=== PATIENT | male | born 1985 | race Hispanic/Latino ===

== ENCOUNTER 2018-05-05 13:40 | Emergency (ER) | payer BC ==
[~2018-05-05] VITALS: Ht 175.3 cm; Wt 100.0 kg
[~2018-05-05 13:40] MED LIST: AMOXICILLIN500 MG OR; NO; ROBITUSSIN AC10 ML OR; TAM75CAP OR
[2018-05-05] MEDS ORDERED: ZYRTEC10 MG PO (13:51)
[2018-05-05 14:56] LABS: URINE BILIRUBIN - DIPSTICK NEGATIVE (NEGATIVE); URINE BLOOD DIPSTICK TRACE-INTACT (NEGATIVE); URINE COLOR YELLOW; URINE GLUCOSE - DIPSTICK NEGATIVE (NEGATIVE); URINE KETONE NEGATIVE (NEGATIVE); URINE LEUK ESTERASE NEGATIVE (NEGATIVE); URINE NITRITE - DIPSTICK NEGATIVE (Negative); URINE PROTEIN - DIPSTICK NEGATIVE (NEG-TRACE); URINE SPECIFIC GRAVITY >=1.030; URINE UROBILINOGEN - DIPSTICK 0.2 E.U./dL (0.2)
[2018-05-05 15:02] LABS: BARBITURATES NEGATIVE (NEGATIVE); COCAINE NEGATIVE (NEGATIVE); METHADONE NEGATIVE (NEGATIVE); OXCYCODONE NEGATIVE (NEGATIVE); TETRAHYDROCANNABIONOL NEGATIVE (NEGATIVE); TRICYLIC ANTIDEPRESSANTS NEGATIVE (NEGATIVE)
[2018-05-05 15:11] LABS: HEMATOCRIT 48.3 % (39.0-50.0); HEMOGLOBIN 16.4 g/dl (14.0-18.0); IMMATURE GRANULOCYTES 0.8 % (0.0-5.0); MEAN CELL VOLUME 85.3 fL CALC (80.0-100.0); NEUT# 6.65 thou/uL (1.82-7.42); RED BLOOD COUNT 5.66 mill/uL (4.70-6.10); RED CELL DISTRI WIDTH 12.3 % (11.5-15.5)
[2018-05-05 15:21] LABS: ALBUMIN 4.8 g/dL (3.2-5.0); ALKALINE PHOSPHATASE 73 u/l (38-126); ANION GAP 17 (6-22 (CALC)); BILIRUBIN, TOTAL 0.4 mg/dL (0.0-1.4); BUN 14 mg/dL (9-20); BUN/CREATININE RATIO 18 (12-20 (CALC)); CARBON DIOXIDE 25 mmol/l (22-30); CHLORIDE 102 mmol/l (95-108); CREATININE 0.8 mg/dL (0.7-1.3); GFR > 60 ML/MIN (>=60 (CALC)); GFR FOR AFR.AMER. > 60 ML/MIN (>=60 (CALC)); POTASSIUM 4.3 mmol/l (3.5-5.1); SGOT/AST 18 u/l (17-59); SODIUM 140 mmol/l (137-146); TOTAL PROTEIN 7.5 g/dL (6.3-8.2)
[2018-05-05 15:32] LABS: MYOGLOBIN 38 ng/mL (0 - 121)
[2018-05-05 16:03] VITALS: BP 115/74
== END 2018-05-05 16:07 | disposition home or self-care (01) | DRG 880 ==
LOC: ED 13:40
PROVIDERS: Emergency Medicine
DX: F41.9 Anxiety disorder, unspecified (principal); R07.89 Other chest pain

== ENCOUNTER 2018-05-30 03:51 | Emergency (ER) | payer BC ==
[~2018-05-30] VITALS: Ht 175.3 cm; Wt 113.6 kg
[~2018-05-30 03:51] MED LIST changes: +ZYRTEC10 MG PO
[2018-05-30] MEDS ORDERED: CLARITIN10 M1 PO (04:03)
[2018-05-30 04:42] LABS: HEMATOCRIT 47.3 % (39.0-50.0); HEMOGLOBIN 16.1 g/dl (14.0-18.0); IMMATURE GRANULOCYTES 0.9 % (0.0-5.0); MEAN CELL VOLUME 85.2 fL CALC (80.0-100.0); NEUT# 8.18 thou/uL (1.82-7.42); RED BLOOD COUNT 5.55 mill/uL (4.70-6.10); RED CELL DISTRI WIDTH 12.6 % (11.5-15.5)
[2018-05-30 04:44] LABS: URINE BILIRUBIN - DIPSTICK NEGATIVE (NEGATIVE); URINE BLOOD DIPSTICK SMALL (NEGATIVE); URINE COLOR YELLOW; URINE GLUCOSE - DIPSTICK NEGATIVE (NEGATIVE); URINE KETONE TRACE mg/dL (NEGATIVE); URINE LEUK ESTERASE NEGATIVE (NEGATIVE); URINE NITRITE - DIPSTICK NEGATIVE (Negative); URINE PH 5.5 (4.5-8.0); URINE PROTEIN - DIPSTICK NEGATIVE (NEG-TRACE); URINE SPECIFIC GRAVITY >=1.030; URINE UROBILINOGEN - DIPSTICK 0.2 E.U./dL (0.2)
[2018-05-30 04:50] LABS: BARBITURATES NEGATIVE (NEGATIVE); COCAINE NEGATIVE (NEGATIVE); METHADONE NEGATIVE (NEGATIVE); OXCYCODONE NEGATIVE (NEGATIVE); TETRAHYDROCANNABIONOL NEGATIVE (NEGATIVE); TRICYLIC ANTIDEPRESSANTS NEGATIVE (NEGATIVE)
[2018-05-30 04:56] LABS: URINE BACTERIA FEW hpf; URINE MUCUS MODERATE hpf (NONE-FEW); URINE RBC 0-2 RBC/hpf (0-5); URINE SQUAMOUS EPITHELIAL CELL FEW EPI/hpf (0-FEW); URINE WBC 0-2 WBC/hpf (0-5)
[2018-05-30 05:03] LABS: ALBUMIN 4.6 g/dL (3.2-5.0); ALKALINE PHOSPHATASE 77 u/l (38-126); AMYLASE 77 u/l (30-110); ANION GAP 16 (6-22 (CALC)); BILIRUBIN, TOTAL 0.4 mg/dL (0.0-1.4); BUN 16 mg/dL (9-20); BUN/CREATININE RATIO 20 (12-20 (CALC)); CARBON DIOXIDE 24 mmol/l (22-30); CHLORIDE 104 mmol/l (95-108); CREATININE 0.8 mg/dL (0.7-1.3); GFR > 60 ML/MIN (>=60 (CALC)); GFR FOR AFR.AMER. > 60 ML/MIN (>=60 (CALC)); LIPASE 97 u/l (23-300); POTASSIUM 4.1 mmol/l (3.5-5.1); SGOT/AST 16 u/l (17-59); SODIUM 140 mmol/l (137-146); TOTAL PROTEIN 7.3 g/dL (6.3-8.2)
[2018-05-30 05:12] LABS: MYOGLOBIN 19 ng/mL (0 - 121)
[2018-05-30] MEDS ORDERED: ONDANSETRON4 MG PO (07:08)
[2018-05-30] MEDS ORDERED: PROTONIX40 M2 PO (07:08)
[2018-05-30 07:21] VITALS: BP 140/97
== END 2018-05-30 07:30 | disposition home or self-care (01) | DRG 384 ==
LOC: ED 03:51
PROVIDERS: Emergency Medicine
DX: K27.9 Peptic ulcer, site unspecified, unspecified as acute or chronic, without hemorrhage or perforation (principal); B96.81 Helicobacter pylori [H. pylori] as the cause of diseases classified elsewhere; R10.13 Epigastric pain; R10.11 Right upper quadrant pain
CPT/HCPCS: S0164

== ENCOUNTER 2018-08-26 23:34 | Emergency (ER) | payer BC ==
[~2018-08-26] VITALS: Ht 175.3 cm; Wt 115.5 kg
[~2018-08-26 23:34] MED LIST changes: +CLARITIN10 M1 PO; +ONDANSETRON4 MG PO; +PROTONIX40 M2 PO
[2018-08-27 04:15] VITALS: BP 129/89
== END 2018-08-27 04:15 | disposition home or self-care (01) | DRG 880 ==
LOC: ED 23:34
DX: F41.0 Panic disorder [episodic paroxysmal anxiety] (principal)

== ENCOUNTER 2018-09-17 22:00 | Emergency (ER) | payer BC ==
[~2018-09-17] VITALS: Ht 175.3 cm; Wt 90.0 kg
[2018-09-17 23:40] VITALS: BP 140/88
[2018-09-17] MEDS ORDERED: HYDROXYZ HCL25 MG PO (23:46)
[2018-09-17] MEDS ORDERED: BUSPAR5 MG PO (23:46)
== END 2018-09-18 00:05 | disposition home or self-care (01) | DRG 880 ==
LOC: ED 22:00
DX: F41.0 Panic disorder [episodic paroxysmal anxiety] (principal); R06.02 Shortness of breath

== ENCOUNTER 2018-10-12 19:24 | Emergency (ER) | payer BC ==
[~2018-10-12] VITALS: Ht 175.3 cm; Wt 101.0 kg
[~2018-10-12 19:24] MED LIST changes: +BUSPAR5 MG PO; +HYDROXYZ HCL25 MG PO
[2018-10-12 20:16] LABS: URINE BLOOD DIPSTICK TRACE-INTACT (NEGATIVE); URINE COLOR YELLOW; URINE GLUCOSE - DIPSTICK NEGATIVE (NEGATIVE); URINE KETONE 40 mg/dL (NEGATIVE); URINE LEUK ESTERASE NEGATIVE (NEGATIVE); URINE NITRITE - DIPSTICK NEGATIVE (Negative); URINE PROTEIN - DIPSTICK TRACE mg/dL (NEG-TRACE); URINE SPECIFIC GRAVITY 1.025; URINE UROBILINOGEN - DIPSTICK 0.2 E.U./dL (0.2)
[2018-10-12 20:18] LABS: URINE BILIRUBIN - DIPSTICK NEGATIVE (NEGATIVE)
[2018-10-12 20:19] LABS: ALBUMIN 4.5 g/dL (3.2-5.0); ALKALINE PHOSPHATASE 65 u/l (38-126); BUN 11 mg/dL (9-20); BUN/CREATININE RATIO 12 (12-20 (CALC)); CARBON DIOXIDE 23 mmol/l (22-30); CHLORIDE 105 mmol/l (95-108); CPK 129 u/l (52-200); CREATININE 0.9 mg/dL (0.7-1.3); GFR > 60 ML/MIN (>=60 (CALC)); GFR FOR AFR.AMER. > 60 ML/MIN (>=60 (CALC)); MAGNESIUM 1.7 mg/dL (1.6-2.3); SGOT/AST 26 u/l (17-59); SODIUM 139 mmol/l (137-146); TOTAL PROTEIN 7.3 g/dL (6.3-8.2)
[2018-10-12 20:19] LABS: BARBITURATES NEGATIVE (NEGATIVE); COCAINE NEGATIVE (NEGATIVE); METHADONE NEGATIVE (NEGATIVE); OXCYCODONE NEGATIVE (NEGATIVE); TETRAHYDROCANNABIONOL NEGATIVE (NEGATIVE); TRICYLIC ANTIDEPRESSANTS NEGATIVE (NEGATIVE)
[2018-10-12 20:26] LABS: ANION GAP 14 (6-22 (CALC)); BILIRUBIN, TOTAL 0.6 mg/dL (0.0-1.4)
[2018-10-12 20:28] LABS: MYOGLOBIN 35 ng/mL (0 - 121)
[2018-10-12] MEDS ORDERED: BUSPAR10 M1 PO (21:10)
[2018-10-12] MEDS ORDERED: METO25TAB PO (21:10)
[2018-10-12 21:24] VITALS: BP 124/81
== END 2018-10-12 21:24 | disposition home or self-care (01) | DRG 880 ==
LOC: ED 19:24
PROVIDERS: Family Medicine
DX: F41.9 Anxiety disorder, unspecified (principal); I10 Essential (primary) hypertension; E87.6 Hypokalemia

== ENCOUNTER 2019-01-04 21:19 | Emergency (ER) | payer BC ==
[~2019-01-04] VITALS: Ht 175.3 cm; Wt 98.2 kg
[~2019-01-04 21:19] MED LIST changes: +BUSPAR10 M1 PO; +METO25TAB PO
[2019-01-04] MEDS ORDERED: LEVOTHYROXIN50 MCG PO (21:32)
[2019-01-04 22:00] LABS: HEMATOCRIT 43.7 % (39.0-50.0); HEMOGLOBIN 14.5 g/dl (14.0-18.0); IMMATURE GRANULOCYTES 0.8 % (0.0-5.0); MEAN CELL VOLUME 85.2 fL CALC (80.0-100.0); MEAN CORPUSCULAR HGB 28.3 pG CALC (26.0-32.0); MEAN CORPUSCULAR HGB CONC 33.2 g/L CALC (32.0-36.0); NEUT# 6.81 thou/uL (1.82-7.42); RED BLOOD COUNT 5.13 mill/uL (4.70-6.10); RED CELL DISTRI WIDTH 12.9 % (11.5-15.5)
[2019-01-04 22:36] VITALS: BP 130/103
== END 2019-01-04 22:37 | disposition home or self-care (01) | DRG 153 ==
LOC: ED 21:19
PROVIDERS: Family Medicine
DX: J06.9 Acute upper respiratory infection, unspecified (principal)

== ENCOUNTER 2020-01-14 07:47 | Emergency (ER) | payer BC ==
[~2020-01-14] VITALS: Ht 175.3 cm; Wt 110.0 kg
[~2020-01-14 07:47] MED LIST changes: +LEVOTHYROXIN50 MCG PO
[2020-01-14] MEDS ORDERED: CHERATUSSIN PO (09:31)
[2020-01-14] MEDS ORDERED: ZPAK PO (09:31)
[2020-01-14 09:43] VITALS: BP 148/77
== END 2020-01-14 09:52 | disposition home or self-care (01) | DRG 153 ==
LOC: ED 07:47
DX: J06.9 Acute upper respiratory infection, unspecified (principal); F41.9 Anxiety disorder, unspecified; J30.2 Other seasonal allergic rhinitis; Z20.828 Contact with and (suspected) exposure to other viral communicable diseases

== ENCOUNTER 2020-05-28 18:37 | Emergency (ER) | payer BC ==
[~2020-05-28] VITALS: Ht 172.7 cm; Wt 113.0 kg
[~2020-05-28 18:37] MED LIST changes: +CHERATUSSIN PO; +ZPAK PO
[2020-05-28 19:45] VITALS: BP 155/97
[2020-05-28] MEDS ORDERED: MOTRIN800 MG PO (19:59)
== END 2020-05-28 19:45 | disposition home or self-care (01) | DRG 563 ==
LOC: ED 18:37
DX: S93.401A Sprain of unspecified ligament of right ankle, initial encounter (principal); I10 Essential (primary) hypertension; F41.9 Anxiety disorder, unspecified; V89.2XXA Person injured in unspecified motor-vehicle accident, traffic, initial encounter

== ENCOUNTER 2020-10-17 01:58 | Emergency (ER) | payer BC ==
[~2020-10-17] VITALS: Ht 172.7 cm; Wt 113.0 kg
[~2020-10-17 01:58] MED LIST changes: +MOTRIN800 MG PO
[2020-10-17] MEDS ORDERED: PROVENTIL HFA IN (04:06)
[2020-10-17] MEDS ORDERED: CODEINE/GUAIFEN1 SOL PO (04:06)
[2020-10-17 04:30] VITALS: BP 135/91
== END 2020-10-17 04:30 | disposition home or self-care (01) | DRG 203 ==
LOC: ED 01:58
DX: J40 Bronchitis, not specified as acute or chronic (principal); I10 Essential (primary) hypertension; F41.9 Anxiety disorder, unspecified; Z20.822 Contact with and (suspected) exposure to COVID-19

== ENCOUNTER 2020-10-26 03:58 | Emergency (ER) | payer BC ==
[~2020-10-26] VITALS: Ht 172.7 cm; Wt 113.0 kg
[~2020-10-26 03:58] MED LIST changes: +CODEINE/GUAIFEN1 SOL PO; +PROVENTIL HFA IN
[2020-10-26] MEDS ORDERED: BACTRIM DS1 TAB PO (04:33)
[2020-10-26 04:45] VITALS: BP 139/91
== END 2020-10-26 04:45 | disposition home or self-care (01) | DRG 603 ==
LOC: ED 03:58
PROC: 0H96XZZ Drainage of Back Skin, External Approach (ICD-10-PCS; principal; 2020-10-26)
DX: L02.212 Cutaneous abscess of back [any part, except buttock and flank] (principal); I10 Essential (primary) hypertension; F41.9 Anxiety disorder, unspecified

== ENCOUNTER 2021-02-03 16:49 | Emergency (ER) | payer BC ==
[~2021-02-03] VITALS: Ht 172.7 cm; Wt 114.0 kg
[~2021-02-03 16:49] MED LIST changes: +BACTRIM DS1 TAB PO
[2021-02-03 18:03] LABS: HEMATOCRIT 47.6 % (39.0-50.0); HEMOGLOBIN 15.8 g/dl (14.0-18.0); IMMATURE GRANULOCYTES 0.9 % (0.0-5.0); MEAN CELL VOLUME 86.5 fL CALC (80.0-100.0); MEAN CORPUSCULAR HGB 28.7 pG CALC (26.0-32.0); MEAN CORPUSCULAR HGB CONC 33.2 g/dL CAL (32.0-36.0); NEUT# 10.58 thou/uL (1.82-7.42); RED BLOOD COUNT 5.5 mill/uL (4.70-6.10); RED CELL DISTRI WIDTH 12.8 % (11.5-15.5)
[2021-02-03 18:19] LABS: ALBUMIN 4.8 g/dL (3.2-5.0); ALKALINE PHOSPHATASE 85 u/l (38-126); AMYLASE 86 u/l (30-110); ANION GAP 17 (6-22 (CALC)); BILIRUBIN, TOTAL 0.5 mg/dL (0.0-1.4); BUN 14 mg/dL (9-20); BUN/CREATININE RATIO 15 (12-20 (CALC)); CARBON DIOXIDE 24 mmol/l (22-30); CHLORIDE 107 mmol/l (95-108); CREATININE 0.9 mg/dL (0.7-1.3); GFR > 60 ML/MIN (>=60 (CALC)); GFR FOR AFR.AMER. > 60 ML/MIN (>=60 (CALC)); LIPASE 48 u/l (23-300); SGOT/AST 24 u/l (17-59); SODIUM 144 mmol/l (137-146); TOTAL PROTEIN 8.5 g/dL (6.3-8.2)
[2021-02-03 18:31] LABS: MYOGLOBIN 83 ng/mL (0 - 121)
[2021-02-03 20:18] LABS: URINE BILIRUBIN - DIPSTICK NEGATIVE (NEGATIVE); URINE BLOOD DIPSTICK TRACE-INTACT (NEGATIVE); URINE COLOR YELLOW; URINE GLUCOSE - DIPSTICK NEGATIVE (NEGATIVE); URINE KETONE TRACE mg/dL (NEGATIVE); URINE LEUK ESTERASE NEGATIVE (NEGATIVE); URINE PROTEIN - DIPSTICK NEGATIVE (NEG-TRACE); URINE UROBILINOGEN - DIPSTICK 0.2 E.U./dL (0.2)
[2021-02-03 20:21] LABS: URINE NITRITE - DIPSTICK NEGATIVE (Negative)
[2021-02-03] MEDS ORDERED: PROTONIX40 M2 PO (20:31)
[2021-02-03] MEDS ORDERED: ZOFRAN4 MG/TAB PO (20:31)
[2021-02-03 20:53] VITALS: BP 126/73
--- NOTE | 2021-02-05 08:43 | NUR ---
PRELIMINARY BLOOD CULTURE SHOWS GRAM (+) COCCI IN 1/4 VIALS, LIKELY CONTAMINANT. RESULTS REPORTED TO DR BENITEZ. ATTEMPTED TO CHECK ON PT VIA PHONE - LEFT VOICEMAIL. WILL REVIEW AGAIN AFTER RECEIVING FINAL CULTURE RESULTS.
--- NOTE | 2021-02-09 08:25 | NUR ---
FINAL RESULTS DISCUSSED WITH . UNABLE TO REACH PATIENT. WE WILL SEND LETTER WITH RESULTS. / VIALS GROWING STAPH CAPITIS probable contamination.
== END 2021-02-03 21:01 | disposition home or self-care (01) | DRG 392 ==
LOC: ED 16:49
PROVIDERS: Emergency Medicine
DX: R10.13 Epigastric pain (principal); R10.33 Periumbilical pain; I10 Essential (primary) hypertension
CPT/HCPCS: Q9967; S0164

== ENCOUNTER 2021-04-15 13:38 | Emergency (ER) | payer SELFPAY ==
[~2021-04-15] VITALS: Ht 172.7 cm; Wt 113.6 kg
[~2021-04-15 13:38] MED LIST changes: +ZOFRAN4 MG/TAB PO
[2021-04-15 14:20] VITALS: BP 160/71
== END 2021-04-15 16:45 | disposition home or self-care (01) | DRG 179 ==
LOC: ED 13:38
DX: U07.1 COVID-19 (principal); I10 Essential (primary) hypertension; F41.9 Anxiety disorder, unspecified

== ENCOUNTER 2022-02-08 20:32 | Observation (INO) | payer SELFPAY ==
[~2022-02-08] VITALS: Ht 175.3 cm; Wt 113.0 kg
[2022-02-08] VITALS (9 sets, daily range): BP systolic 119–141; BP diastolic 78–96
--- NOTE | 2022-02-08 20:32 | NUR ---
PATIENT ARRIVED IN ED TAKEN TO ROOM 6. BGL 92. ASSESSED BY ED PHYSICIAN.
[2022-02-08 21:29] LABS: HEMATOCRIT 48.2 % (39.0-50.0); HEMOGLOBIN 16.3 g/dl (14.0-18.0); IMMATURE GRANULOCYTES 0.5 % (0.0-5.0); MEAN CELL VOLUME 85.3 fL CALC (80.0-100.0); MEAN CORPUSCULAR HGB 28.8 pG CALC (26.0-32.0); MEAN CORPUSCULAR HGB CONC 33.8 g/dL CAL (32.0-36.0); NEUT# 7.77 thou/uL (1.82-7.42); RED BLOOD COUNT 5.65 mill/uL (4.70-6.10); RED CELL DISTRI WIDTH 12.7 % (11.5-15.5)
[2022-02-08 21:43] LABS: PROTHROMBIN TIME 10.4 SECONDS (9.0-12.5)
[2022-02-08 21:45] LABS: ALBUMIN 4.9 g/dL (3.2-5.0); ALKALINE PHOSPHATASE 71 u/l (38-126); ANION GAP 17 (6-22 (CALC)); BILIRUBIN, TOTAL 1.3 mg/dL (0.0-1.4); BUN 13 mg/dL (9-20); BUN/CREATININE RATIO 15 (12-20 (CALC)); CARBON DIOXIDE 22 mmol/l (22-30); CHLORIDE 105 mmol/l (95-108); CREATININE 0.9 mg/dL (0.7-1.3); GFR FOR AFR.AMER. > 60 ML/MIN (>=60 (CALC)); GFR OTHER RACES > 60 ML/MIN (>=60 (CALC)); POTASSIUM 3.9 mmol/l (3.5-5.1); SGOT/AST 34 u/l (17-59); SODIUM 141 mmol/l (137-146); TOTAL PROTEIN 8.5 g/dL (6.3-8.2)
--- NOTE | 2022-02-08 22:56 | NUR ---
AWAITING URINE RESULTS. PT STABLE ADVISED OF WAIT TIME.
[2022-02-08 23:03] LABS: URINE BLOOD DIPSTICK NEGATIVE (NEGATIVE); URINE COLOR YELLOW; URINE GLUCOSE - DIPSTICK NEGATIVE (NEGATIVE); URINE KETONE 40 mg/dL (NEGATIVE); URINE LEUK ESTERASE NEGATIVE (NEGATIVE); URINE PROTEIN - DIPSTICK TRACE mg/dL (NEG-TRACE); URINE SPECIFIC GRAVITY >=1.030
[2022-02-08 23:11] LABS: URINE BILIRUBIN - DIPSTICK SMALL (NEGATIVE); URINE NITRITE - DIPSTICK NEGATIVE (Negative)
[2022-02-09 00:30] VITALS: BP 123/90
--- NOTE | 2022-02-09 00:30 | NUR ---
BELONGINGS SHEET COMPLETED.
--- NOTE | 2022-02-09 00:39 | NUR ---
REPORT TO ALONSO/MED-SURG.
--- NOTE | 2022-02-09 00:45 | NUR ---
TO FLOOR VIA STRETCHER WITH NURSE/POCKET MONITOR. NAD. NO CHANGE IN CONDITION. VSS. NO C/O.
--- NOTE | 2022-02-09 02:00 | NUR ---
PATIENT ADMITTED FROM ER VIA STRETCHER WITH ER STAFF IN ATTENDANCE. PATIENT IS ABLE TO TRANSFER TO BED. AWAKE ALERT AND ORIENTEDX3. PATIENT STATES THAT THE NUMBNESS THAT HE WAS FEELING PRIOR TO ADMITSSION IS RESOLVED. NEURO CHECK IS WNL. NO WEAKNESS NOTED. MARTHA IS WNL. HAND GRASPS ARE EQUAL. SALINE LOCK TO LAC INTACT. IVF NS HUNG AND INFUSING AT 125CC/HR. TELE MONITOR IN PLACE-SR 70'S. LUNGS ARE CLEAR. ABD IS SOFT WITH ACTIVE BS. NO PERIPHERAL EDEMA NOTED. DENIES ANY DIFFICULTY WITH URINATION AND LASTBM WAS YESTERDAY 02/08/22. ORIENTED TO ROOM AND SURROUNDINGS. INSTRUCTED ON USE OF NURSE CALL LIGHT SYSTEM AND TV REMOTE. CALL LIGHT IN REACH. WILL CONT TO MONITOR.
[2022-02-09 04:10] VITALS: BP 104/67
[2022-02-09 05:30] VITALS: BP 104/73
--- NOTE | 2022-02-09 05:30 | NUR ---
PATIENT RESTING IN BED-EYES ARE CLOSED AND RESP ARE EVEN AND UNLABORED. IVF PATENT AND INFUSING VIA LAC SITE. TELE MONITOR IN PLACE AND READING SR-70'S. CALL LIGHT IN REACH. WILL CONT TO MONITOR.
--- NOTE | 2022-02-09 07:42 | NUR ---
RECEIVE REPORT FROM HEIDY RILEY. PATIENT STABLE AT THIS TIME RESTING IN BED.
[2022-02-09 08:00] VITALS: BP 104/73
--- NOTE | 2022-02-09 08:00 | NUR ---
PATIENT ALERTA AND ORIENTED X3. RESTING IN BED STABLE AT THIS TIME. ASSESSMENT HEAD-TO-TOE COMPLETE. PATIENT IS EDUCATED ABOUD MEDICATIONS AND NURSING PLAN FOR TODAY. PT REFER UNDERSTAND. SAFETY AND FALL PRECAUTIONS IN PLACE. CALL LIGHT WITHIN IN REACH.
--- NOTE | 2022-02-09 13:31 | NUR ---
Discharge instructions given. Patient verbalizes understanding of same. Discharged in stable condition via Wheelchair to Home with staff. All belongings sent with pt.
== END 2022-02-09 13:15 | disposition home or self-care (01) | DRG 93 ==
LOC: ED 20:32 → ED-I 23:20 → ED 23:50 → MS2 23:50
PROVIDERS: Emergency Medicine; ADMIT Internal Medicine; ATTEND Internal Medicine
DX: R20.0 Anesthesia of skin (principal); F14.10 Cocaine abuse, uncomplicated; F16.10 Hallucinogen abuse, uncomplicated; F15.10 Other stimulant abuse, uncomplicated; I10 Essential (primary) hypertension; F41.9 Anxiety disorder, unspecified; Z86.16 Personal history of COVID-19
CPT/HCPCS: G0378

== ENCOUNTER 2024-05-11 18:23 | Emergency (ER) | payer SELFPAY ==
[2024-05-11] VITALS (9 sets, daily range): BP systolic 117–145; BP diastolic 83–97
[~2024-05-11] VITALS: Ht 175.3 cm; Wt 95.2 kg
[2024-05-11] MEDS ORDERED: LEVOCETIRIZINE D5 MG PO (19:13)
[2024-05-11] MEDS ORDERED: ZPAK PO (19:13)
[2024-05-11] MEDS ORDERED: MEDDOSEPAK PO (19:13)
[2024-05-11] MEDS ORDERED: PROAIR HFA IN (19:13)
[2024-05-11] MEDS ORDERED: predniSONE 20 MG/TAB PO ONE (20:05)
[2024-05-11] MEDS ORDERED: ALBUTEROL SULFATE 8 GM INH IN ONE (20:05)
[2024-05-11] MEDS ORDERED: AZITHROMYCIN 250 MG/TAB PO ONE (20:05)
== END 2024-05-11 20:18 | disposition home or self-care (01) | DRG 153 ==
LOC: ED 18:23
DX: J06.9 Acute upper respiratory infection, unspecified (principal); J40 Bronchitis, not specified as acute or chronic; I10 Essential (primary) hypertension; F41.9 Anxiety disorder, unspecified; Z20.822 Contact with and (suspected) exposure to COVID-19